=== PATIENT | female | born 1945 | race Caucasian/White ===

== ENCOUNTER 2020-12-20 14:53 | Inpatient (IN) | payer OTHER ==
[~2020-12-20] VITALS: Ht 157.5 cm; Wt 42.8 kg
[2020-12-20] MEDS ORDERED: SODIUM CHLORIDE 0.9% 1,000 ML IV ONE ×2 (15:30)
[2020-12-20 16:13] LABS: Mean Corpuscular Volume 58.2 fL (80.0-100.0); White Blood Cell 9.1 10^3/uL (4.4-10.8)
[2020-12-20 16:16] LABS: Hematocrit 20.6 % (36.0-46.0); Mean Corpuscular Hgb Conc. 29.2 g/dL (32.0-36.0); Red Blood Cells 3.53 10^6/uL (4.0-5.20)
[2020-12-20 16:29] LABS: Red Cell Distribution Width 21.8 % (11.8-14.3)
[2020-12-20 16:38] LABS: Albumin 2.9 g/dL (3.4-5.0); Anion Gap 6 (5-15); Blood Urea Nitrogen 18 mg/dL (7-18); Calcium 7.8 mg/dL (8.5-10.1); Carbon Dioxide 24 mmol/L (21-32); Chloride 113 mmol/L (98-107); Glucose 97 mg/dL (74-106); Potassium 4.1 mmol/L (3.5-5.1); Sodium 143 mmol/L (136-145)
[2020-12-20 16:41] LABS: Basophils % (manual) 0 (0.0-2.0); Blast Cells 0; Metamyelocytes % 0; Myelocytes % 0; Promyelocytes % 0; Reactive Lymphocytes 0
[2020-12-20 16:45] LABS: Alanine Aminotransferase 21 U/L (13-56); Alkaline Phosphatase 64 U/L (45-117); Aspartate Aminotransferase 17 U/L (15-37); BUN/Creatinine Ratio 31.6; Bilirubin, Total 0.3 mg/dL (0.2-1.0); GFR African American 133 mL/min; GFR Non-African American 110 mL/min; Total Protein 5.8 g/dL (6.4-8.2)
[2020-12-20] MEDS ORDERED: TAMSULOSIN HYDROCHLORIDE 0.4 MG CAP PO ONE (17:00)
[2020-12-20 17:13] LABS: INR 1.08 (0.9-1.15)
[2020-12-20 17:54] LABS: Band Neutrophils % (manual) 3; Eosinophils % (manual) 1 (0-7); Lymphocytes % (manual) 3 (10.0-50.0); Monocytes % (manual) 1 (0-12)
[2020-12-20 19:03] LABS: % Iron Saturation 4.2 % (15-50)
[2020-12-20 21:47] VITALS: BP 150/57
[2020-12-20] MEDS ORDERED: MORPHINE SULF INJ 2 MG/ML SYRINGE 1ML IV PRN (22:30)
[2020-12-21] VITALS (10 sets, daily range): BP systolic 133–183; BP diastolic 46–92
[2020-12-21] MEDS ORDERED: MORPHINE SULF INJ 2 MG/ML SYRINGE 1ML IV PRN (01:00)
[2020-12-21] MEDS ORDERED: ACETAMINOPHEN 325 MG TAB PO PRN (01:00)
[2020-12-21] MEDS ORDERED: ONDANSETRON HCL 4 MG/2 ML VIAL IV PRN (01:00)
[2020-12-21] MEDS ORDERED: DOCUSATE SOD 100 MG CAP PO PRN (01:00)
[2020-12-21] MEDS ORDERED: NITROGLYCERIN 0.4 MG SL TAB SL PRN (01:00)
[2020-12-21] MEDS ORDERED: SODIUM FERR GLUC 62.5MG/5ML 125 MG in SODIUM CHL 0.9% 100 ML IV ONE (01:00)
[2020-12-21] MEDS: SOD CHL 0.45% 1,000 ML IV SCH ×2 (01:22→21:00)
[2020-12-21 08:03] LABS: White Blood Cell 5.6 10^3/uL (4.4-10.8)
[2020-12-21 08:05] LABS: Hematocrit 17.5 % (36.0-46.0); Mean Corpuscular Hemoglobin 17.5 pg (28.0-32.0); Mean Corpuscular Hgb Conc. 29.9 g/dL (32.0-36.0); Mean Corpuscular Volume 58.7 fL (80.0-100.0); Red Blood Cells 2.98 10^6/uL (4.0-5.20)
[2020-12-21 08:14] LABS: Hemoglobin 5.2 g/dL (12.2-16.2)
[2020-12-21 08:15] LABS: Basophils % (manual) 0 (0.0-2.0); Blast Cells 0; Metamyelocytes % 0; Myelocytes % 0; Promyelocytes % 0; Reactive Lymphocytes 0
[2020-12-21 08:26] LABS: Albumin 2.8 g/dL (3.4-5.0); BUN/Creatinine Ratio 35.4; Calcium 7.6 mg/dL (8.5-10.1); Potassium 3.7 mmol/L (3.5-5.1)
[2020-12-21 08:29] LABS: Bilirubin, Total 0.1 mg/dL (0.2-1.0); Total Protein 5.3 g/dL (6.4-8.2)
[2020-12-21] MEDS ORDERED: methylPREDNISolone SOD SUCC 125 MG/2 ML VL IV ONE (08:30)
[2020-12-21] MEDS ORDERED: FAMOTIDINE (10MG/ML) 2ML VL IV ONE (08:30)
[2020-12-21] MEDS ORDERED: ACETAMINOPHEN 325 MG TAB PO ONE (08:30)
[2020-12-21] MEDS ORDERED: diphenhdrAMINE HCL 50 MG/1 ML VL IV ONE (08:30)
[2020-12-21] MEDS: ASCORBIC ACID 500 MG TAB PO SCH ×2 (09:08→21:03)
[2020-12-21] MEDS: MULTIPLE VITAMIN TAB PO SCH (09:08)
[2020-12-21] MEDS: FAMOTIDINE (10MG/ML) 2ML VL IV SCH ×2 (09:08→21:03)
[2020-12-21] MEDS: ZINC SULFATE 220mg CAP or TAB PO SCH (09:08)
[2020-12-21 09:38] LABS: Band Neutrophils % (manual) 5; Eosinophils % (manual) 1 (0-7); Lymphocytes % (manual) 28 (10.0-50.0); Monocytes % (manual) 7 (0-12)
[2020-12-21] MEDS ORDERED: CLOP75TA28 PO (13:02)
[2020-12-21] MEDS ORDERED: PYRI1TAB3 PO (13:02)
[2020-12-21] MEDS ORDERED: VITA80009 PO (13:02)
[2020-12-21] MEDS ORDERED: POTA1TAB61 PO (13:02)
[2020-12-21] MEDS ORDERED: ROSU5TAB5 PO (13:02)
[2020-12-21] MEDS ORDERED: FERR27TA2 PO (13:02)
[2020-12-21] MEDS ORDERED: CALC667C PO (13:02)
[2020-12-21] MEDS ORDERED: CHOL20007 PO (13:02)
[2020-12-21] MEDS ORDERED: ASCO500T11 PO (13:02)
[2020-12-21] MEDS ORDERED: LEVO25TA49 PO (13:02)
[2020-12-21] MEDS ORDERED: CYAN-17 PO (13:02)
[2020-12-21] MEDS ORDERED: MAGN400T40 PO (13:02)
[2020-12-21] MEDS ORDERED: MANNITOL FTV 25% 12.5 GM/50 ML 50 ML IV ONE (19:15)
[2020-12-22 01:40] LABS: Hematocrit 28.2 % (36.0-46.0)
[2020-12-22 05:54] LABS: Mean Corpuscular Volume 67.7 fL (80.0-100.0); White Blood Cell 11.9 10^3/uL (4.4-10.8)
[2020-12-22 05:57] LABS: Hematocrit 29.1 % (36.0-46.0); Hemoglobin 9.2 g/dL (12.2-16.2); Mean Corpuscular Hemoglobin 21.3 pg (28.0-32.0); Mean Corpuscular Hgb Conc. 31.4 g/dL (32.0-36.0)
[2020-12-22 06:04] VITALS: BP 165/60
[2020-12-22 06:18] LABS: Red Cell Distribution Width 29.2 % (11.8-14.3)
[2020-12-22 06:24] LABS: Band Neutrophils % (manual) 0; Basophils % (manual) 0 (0.0-2.0); Blast Cells 0; Eosinophils % (manual) 0 (0-7); Metamyelocytes % 0; Myelocytes % 0; Promyelocytes % 0; Reactive Lymphocytes 0
[2020-12-22 06:35] LABS: Potassium 3.8 mmol/L (3.5-5.1)
[2020-12-22 07:02] LABS: BUN/Creatinine Ratio 27.3; Bilirubin, Total 0.4 mg/dL (0.2-1.0); Calcium 8.1 mg/dL (8.5-10.1)
[2020-12-22 07:44] LABS: Lymphocytes % (manual) 23 (10.0-50.0); Monocytes % (manual) 7 (0-12)
[2020-12-22 08:56] VITALS: BP 153/85
[2020-12-22] MEDS: ZINC SULFATE 220mg CAP or TAB PO SCH (10:19)
[2020-12-22] MEDS: FAMOTIDINE (10MG/ML) 2ML VL IV SCH ×2 (10:19→20:57)
[2020-12-22] MEDS: MULTIPLE VITAMIN TAB PO SCH (10:21)
[2020-12-22] MEDS: ASCORBIC ACID 500 MG TAB PO SCH (10:21)
[2020-12-22] MEDS: HYDROcodone-ACET 5/325MG TAB PO PRN ×4 (10:25→21:03)
[2020-12-22] MEDS: FERROUS SULFATE 325mg EC TAB PO SCH ×2 (12:00→18:19)
[2020-12-22 13:00] VITALS: BP 169/72
[2020-12-22 14:27] LABS: Ferritin 2.6 ng/mL (10-322)
[2020-12-22 14:28] LABS: Folate (Folic Acid) 8.22 ng/mL (5.38-24)
[2020-12-22] MEDS ORDERED: LACTULOSE 20Gm/30ML SOLN PO PRN (14:30)
[2020-12-22 17:00] VITALS: BP 174/72
[2020-12-22] MEDS: SOD CHL 0.45% 1,000 ML IV SCH (17:00)
[2020-12-22 23:12] VITALS: BP 155/90
[2020-12-23] MEDS: SOD CHL 0.45% 1,000 ML IV SCH (04:29)
[2020-12-23] MEDS: HYDROcodone-ACET 5/325MG TAB PO PRN ×4 (04:40→21:45)
[2020-12-23 05:21] VITALS: BP 186/76
[2020-12-23] MEDS ORDERED: cloNIDine HCL 0.1 MG TAB PO PRN (06:15)
[2020-12-23 07:34] LABS: Urine Bacteria FEW /hpf (None Seen); Urine Blood Negative /uL (Negative); Urine Mucus FEW (None Seen); Urine Specific Gravity 1.011 (1.001-1.035); Urine WBC 1 /hpf (0 - 5)
[2020-12-23] MEDS: FERROUS SULFATE 325mg EC TAB PO SCH ×3 (08:00→18:04)
[2020-12-23 08:30] VITALS: BP 137/59
[2020-12-23] MEDS: FAMOTIDINE (10MG/ML) 2ML VL IV SCH ×2 (09:52→21:41)
[2020-12-23 12:30] VITALS: BP 154/90
[2020-12-23 16:48] VITALS: BP 142/72
[2020-12-23 22:00] VITALS: BP 153/70
== END 2020-12-24 00:20 | disposition short-term general hospital (02) | DRG 812 ==
LOC: ER 14:53 → EDBD 14:53 → TELE 12-21 00:53 → TELE-WESTW 12-21 10:04
PROVIDERS: ADMIT Nurse Practitioner Family; ATTEND Family Medicine
PROC: 30233N1 Transfusion of Nonautologous Red Blood Cells into Peripheral Vein, Percutaneous Approach (ICD-10-PCS; principal; 2020-12-21)
DX: D50.9 Iron deficiency anemia, unspecified (principal); N13.2 Hydronephrosis with renal and ureteral calculous obstruction; E44.0 Moderate protein-calorie malnutrition; Z68.1 Body mass index [BMI] 19.9 or less, adult; Z20.822 Contact with and (suspected) exposure to COVID-19; E03.9 Hypothyroidism, unspecified; I10 Essential (primary) hypertension; N83.209 Unspecified ovarian cyst, unspecified side; K59.00 Constipation, unspecified; F17.210 Nicotine dependence, cigarettes, uncomplicated; E88.09 Other disorders of plasma-protein metabolism, not elsewhere classified; Z79.899 Other long term (current) drug therapy; Z88.0 Allergy status to penicillin; Z86.010 Personal history of colon polyps; Z90.710 Acquired absence of both cervix and uterus; Z90.5 Acquired absence of kidney; Z80.1 Family history of malignant neoplasm of trachea, bronchus and lung; Z81.2 Family history of tobacco abuse and dependence
CPT/HCPCS: 36415; 70450; 71045; 74176; 76775; 80053; 81001; 82270; 82607; 82728; 82746; 83010; 83540; 83550; 83615; 84443; 84484; 85007; 85014; 85018; 85025; 85027; 85045; 85610; 86850; 86900; 86901; 86920; 87426; 93005; 96361; 96365; G0378; J3490

== ENCOUNTER 2021-12-16 05:34 | Emergency (ER) | payer OTHER ==
[~2021-12-16] VITALS: Ht 167.6 cm; Wt 54.5 kg
[~2021-12-16 05:34] MED LIST: ASCO500T11 PO; CALC667C PO; CHOL20007 PO; CLOP75TA28 PO; CYAN-17 PO; FERR27TA2 PO; LEVO25TA49 PO; MAGN400T40 PO; POTA1TAB61 PO; PYRI1TAB3 PO; ROSU5TAB5 PO; VITA80009 PO
[2021-12-16] MEDS ORDERED: SODIUM CHLORIDE 0.9% 1,000 ML IV ONE (06:00)
[2021-12-16] MEDS ORDERED: CARISOPRODOL 350 MG TAB PO ONE (06:45)
[2021-12-16 06:51] LABS: Albumin 3.6 g/dL (3.4-5.0); Calcium 8.4 mg/dL (8.5-10.1); Potassium 3.7 mmol/L (3.5-5.1)
[2021-12-16 06:55] LABS: BUN/Creatinine Ratio 15.7; Bilirubin, Total 0.2 mg/dL (0.2-1.0)
[2021-12-16] MEDS ORDERED: LABETALOL HCL 5 MG/ML 4ML SYRINGE IV ONE (07:15)
[2021-12-16 07:58] LABS: Basophils # (auto) 0 10 ^3/uL (0-0.2); Basophils % (auto) 0.4 % (0.0-2.0); Eosinophils # (auto) 0 10 ^3/uL (0-0.8); Hematocrit 26.6 % (36.0-46.0); Lymphocytes # (auto) 0.3 10 ^3/uL (0.4-5.4); Lymphocytes % (auto) 3.3 % (10.0-50.0); Mean Corpuscular Hemoglobin 22.2 pg (28.0-32.0); Mean Corpuscular Hgb Conc. 30.2 g/dL (32.0-36.0); Mean Corpuscular Volume 73.4 fL (80.0-100.0); Monocytes # (auto) 0.5 10 ^3/uL (0-1.3); Monocytes % (auto) 5.5 % (0.0-12.0); Neutrophils # (auto) 8.1 10 ^3/uL (1.6-8.6); Neutrophils % (auto) 90.8 % (37.0-80.0); Red Blood Cells 3.62 10^6/uL (4.0-5.20); Red Cell Distribution Width 27.1 % (11.8-14.3)
[2021-12-16] MEDS: KETOROLAC TROMETH 30 MG/ML 1ML VIAL IV ONE ×2 (08:15→08:23)
[2021-12-16 13:29] LABS: Urine Bacteria FEW /hpf (None Seen); Urine Blood 3+ /uL (Negative); Urine Specific Gravity 1.008 (1.001-1.035); Urine WBC 2 /hpf (0 - 5)
[2021-12-16] MEDS ORDERED: HEPARIN SODIUM (PORCINE) 5000 UNITS/ML 1ML VIAL IV ONE (13:45)
[2021-12-16 14:41] LABS: INR 1.03 (0.9-1.15)
[2021-12-16] MEDS ORDERED: MORPHINE SULFATE INJ 2 MG/ml SYRG IV ONE (16:30)
[2021-12-16] MEDS ORDERED: ONDANSETRON HCL 4 MG/2 ML VIAL IV ONE (16:30)
[2021-12-16] MEDS ORDERED: MORPHINE SULFATE 4 MG/ML SYR/VIAL ONE (16:34)
[2021-12-16 16:37] VITALS: BP 133/68
== END 2021-12-16 16:40 | disposition short-term general hospital (02) ==
LOC: ER 05:34 → EDBD 05:34 → ER 16:40
DX: I77.1 Stricture of artery (principal); I16.0 Hypertensive urgency; R07.89 Other chest pain; F17.210 Nicotine dependence, cigarettes, uncomplicated; Z90.49 Acquired absence of other specified parts of digestive tract; Z90.710 Acquired absence of both cervix and uterus; Z79.899 Other long term (current) drug therapy; Z88.0 Allergy status to penicillin; Z88.8 Allergy status to other drugs, medicaments and biological substances
CPT/HCPCS: 36415; 71045; 80053; 81001; 84484; 85025; 85610; 93925; 96361; 96374; 96375; 99285; J1644; J1885; J2270; J2405; J3490; J7030

== ENCOUNTER 2021-12-26 21:06 | Emergency (ER) | payer OTHER ==
[~2021-12-26] VITALS: Ht 154.9 cm; Wt 38.0 kg
[2021-12-27] VITALS: BP 122/39
[2021-12-27 00:02] LABS: Basophils # (auto) 0.1 10 ^3/uL (0-0.2); Basophils % (auto) 0.9 % (0.0-2.0); Eosinophils # (auto) 0.2 10 ^3/uL (0-0.8); Eosinophils % (auto) 2.3 % (0.0-7.0); Hematocrit 31.8 % (36.0-46.0); Hemoglobin 10.1 g/dL (12.2-16.2); Lymphocytes # (auto) 2.1 10 ^3/uL (0.4-5.4); Lymphocytes % (auto) 23.6 % (10.0-50.0); Mean Corpuscular Hemoglobin 25.3 pg (28.0-32.0); Mean Corpuscular Hgb Conc. 31.8 g/dL (32.0-36.0); Mean Corpuscular Volume 79.8 fL (80.0-100.0); Monocytes # (auto) 0.9 10 ^3/uL (0-1.3); Monocytes % (auto) 10.5 % (0.0-12.0); Neutrophils # (auto) 5.6 10 ^3/uL (1.6-8.6); Neutrophils % (auto) 62.7 % (37.0-80.0); Nucleated Red Blood Cells % 0.1 %; Red Blood Cells 3.99 10^6/uL (4.0-5.20); White Blood Cell 8.9 10^3/uL (4.4-10.8)
[2021-12-27 00:03] LABS: Albumin 2.9 g/dL (3.4-5.0); BUN/Creatinine Ratio 39.1; Calcium 8.3 mg/dL (8.5-10.1); Potassium 3.8 mmol/L (3.5-5.1)
[2021-12-27 00:04] LABS: Red Cell Distribution Width 28.2 % (11.8-14.3)
[2021-12-27 00:06] LABS: Bilirubin, Total 0.2 mg/dL (0.2-1.0)
[2021-12-27 00:08] LABS: INR 0.97 (0.9-1.15)
== END 2021-12-27 07:10 | disposition home or self-care (01) ==
LOC: ER 21:06 → EDBD 21:06 → ER 12-27 07:10
DX: K92.2 Gastrointestinal hemorrhage, unspecified (principal); I10 Essential (primary) hypertension; F17.210 Nicotine dependence, cigarettes, uncomplicated; Z90.49 Acquired absence of other specified parts of digestive tract; Z90.710 Acquired absence of both cervix and uterus; Z79.899 Other long term (current) drug therapy; Z88.0 Allergy status to penicillin; Z88.8 Allergy status to other drugs, medicaments and biological substances
CPT/HCPCS: 36415; 80053; 85025; 85610

== ENCOUNTER 2022-12-31 21:05 | Emergency (ER) | payer OTHER ==
[~2022-12-31 21:05] MED LIST changes: +DILT60TA PO; +FERR1TAB31 PO; -FERR27TA2 PO; +GABA-1308 PO; +LACT10SO3 PO; +LEVO88TA4 PO; +PANT1INJ3 PO; +PANT40TA2 PO; +POTA10TA51 PO; +ROSU1TAB14 PO; +SUCR1SUS25 PO; +SUCR1TAB22 OR; +VARE0.5T PO
[2023-01-01] MEDS ORDERED: ZOFR4T PO (00:40)
[2023-01-01] MEDS ORDERED: HYDR-4902 PO (00:40)
[2023-01-01] MEDS ORDERED: HYDROcodone-ACET 5/325MG TAB PO ONE (00:45)
[2023-01-01] MEDS ORDERED: ONDANSETRON ODT 4 MG TAB PO ONE (00:45)
[2023-01-01 00:49] VITALS: BP 110/38; PULSE 76; RESP 18; TEMP 98; O2SAT 100
== END 2023-01-01 01:15 | disposition home or self-care (01) ==
LOC: ER 21:05
DX: S52.502A Unspecified fracture of the lower end of left radius, initial encounter for closed fracture (principal); S09.90XA Unspecified injury of head, initial encounter; I10 Essential (primary) hypertension; F17.210 Nicotine dependence, cigarettes, uncomplicated; Z88.8 Allergy status to other drugs, medicaments and biological substances; Z88.0 Allergy status to penicillin; Z79.899 Other long term (current) drug therapy; Z87.442 Personal history of urinary calculi; Z98.890 Other specified postprocedural states; W01.0XXA Fall on same level from slipping, tripping and stumbling without subsequent striking against object, initial encounter; Y93.89 Activity, other specified; Y92.89 Other specified places as the place of occurrence of the external cause; Y99.8 Other external cause status
CPT/HCPCS: 29125; 70450; 73110; 73562; 99284; Q0162

== ENCOUNTER 2023-02-09 12:08 | Emergency (ER) | payer OTHER ==
[~2023-02-09] VITALS: Ht 162.6 cm; Wt 41.0 kg
[~2023-02-09 12:08] MED LIST changes: +HYDR-4902 PO; +ZOFR4T PO
[2023-02-09 13:35] LABS: Hemoglobin 9.7 g/dL (12.2-16.2); White Blood Cell 7.8 10^3/uL (4.4-10.8)
[2023-02-09 13:37] LABS: Hematocrit 31.4 % (36.0-46.0); Mean Corpuscular Hemoglobin 25.9 pg (28.0-32.0); Mean Corpuscular Hgb Conc. 30.9 g/dL (32.0-36.0); Mean Corpuscular Volume 83.7 fL (80.0-100.0); Red Blood Cells 3.75 10^6/uL (4.0-5.20); Red Cell Distribution Width 34.7 % (11.8-14.3)
[2023-02-09 13:40] LABS: Band Neutrophils % (manual) 0; Basophils % (manual) 0 (0.0-2.0); Blast Cells 0; Eosinophils % (manual) 0 (0-7); Metamyelocytes % 0; Myelocytes % 0; Promyelocytes % 0; Reactive Lymphocytes 0
[2023-02-09] MEDS ORDERED: fentaNYL CITRATE 100 MCG/2 ML VL IV ONE ×4 (13:45→21:45)
[2023-02-09 13:50] LABS: Hypochromia Moderate; Lymphocytes % (manual) 11 (10.0-50.0); Monocytes % (manual) 3 (0-12); Platelet Estimate Adequate
[2023-02-09 13:51] LABS: Target Cell FEW
[2023-02-09 13:52] LABS: Alanine Aminotransferase 42 U/L (7-40); Albumin 3.7 g/dL (3.2-4.8); Alkaline Phosphatase 79 U/L (46-116); Anion Gap 3 (5-15); Aspartate Aminotransferase 33 U/L (13-40); BUN/Creatinine Ratio 24.6 (10.0-20.0); Blood Urea Nitrogen 14 mg/dL (9-23); Calcium 8.8 mg/dL (8.5-10.1); Carbon Dioxide 29 mmol/L (20-30); Chloride 111 mmol/L (98-107); Glucose 102 mg/dL (74-106); Potassium 4.3 mmol/L (3.5-5.1); Sodium 143 mmol/L (136-145)
[2023-02-09 13:53] LABS: Bilirubin, Total 0.2 mg/dL (0.2-1.0); Total Protein 5.9 g/dL (5.7-8.2)
[2023-02-09 15:44] VITALS: PULSE 89; RESP 20; O2SAT 96
[2023-02-09] MEDS ORDERED: FER325T PO (16:31)
[2023-02-09] MEDS ORDERED: SODIUM CHLORIDE 0.9% 500 ML IV ONE (16:45)
[2023-02-09] MEDS ORDERED: ASPI1TAB20 PO (16:51)
[2023-02-09] MEDS ORDERED: MIRT1TAB38 PO (16:51)
[2023-02-09] MEDS ORDERED: TRAM50TA2 PO (16:51)
[2023-02-09 18:55] LABS: Urine Bacteria NONE SEEN /hpf (None Seen); Urine Blood Negative /uL (Negative); Urine Clarity HAZY (Clear); Urine Color Colorless (Yellow); Urine Protein, UAD Negative (Negative); Urine Specific Gravity 1.017 (1.001-1.035); Urine Urobilinogen Normal (Negative); Urine WBC <1 /hpf (0 - 5); Urine pH 7.5 (5.0-8.0)
[2023-02-09 19:30] VITALS: PULSE 92; RESP 13; O2SAT 97
[2023-02-09 21:22] LABS: COVID19 ANTIGEN SOFIA FIA NEGATIVE (NEGATIVE)
[2023-02-09] MEDS ORDERED: HYDROmorphone HCL 2 MG/ML VL/or syr IV ONE (22:45)
[2023-02-09 23:25] VITALS: BP 117/92; PULSE 79; RESP 14; TEMP 99.3; O2SAT 97
== END 2023-02-10 03:23 | disposition short-term general hospital (02) ==
LOC: EDBD 12:08 → ER 12:08 → EDUNIT# 12:08 → ER 02-10 03:23
DX: S72.142A Displaced intertrochanteric fracture of left femur, initial encounter for closed fracture (principal); I10 Essential (primary) hypertension; Z90.710 Acquired absence of both cervix and uterus; Z86.718 Personal history of other venous thrombosis and embolism; Z88.0 Allergy status to penicillin; Z20.822 Contact with and (suspected) exposure to COVID-19; W18.39XA Other fall on same level, initial encounter; Y93.01 Activity, walking, marching and hiking; Y92.89 Other specified places as the place of occurrence of the external cause; Y99.8 Other external cause status
CPT/HCPCS: 36415; 74176; 80053; 81001; 85007; 85027; 87426; 96361; 96374; 96375; 96376; 99285; J1170; J3010; J7040